=== PATIENT | female | born 1945 | race Caucasian/White ===

== ENCOUNTER 2017-08-30 11:00 | Outpatient (CLI) | payer MEDICARE, OTHER | END 2017-08-30 11:01 | disposition home or self-care (01) | LOC: BICMAMMO 11:00 | PROVIDERS: ATTEND Nurse Practitioner Family | DX: Z12.31 Encounter for screening mammogram for malignant neoplasm of breast (principal); Z80.3 Family history of malignant neoplasm of breast | CPT/HCPCS: 77063; 77067 ==

== ENCOUNTER 2018-07-30 08:33 | Outpatient (CLI) | payer MEDICARE, OTHER ==
--- NOTE | 2018-07-30 11:10 | BD ---
DEXA BONE DENSITY EXAM: HISTORY: A 73-year-old postmenopausal female for screening. FINDINGS: LUMBAR SPINE BMD (g/cm2) T-SCORE L1 0.702 -2.6 L2 0.678 -3.2 L3 0.699 -3.5 L4 0.796 -2.4 TOTAL L1-L4 0.722 -3.0 LEFT FEMORAL NECK 0.620 -2.1 TOTAL PROXIMAL LEFT FEMUR 0.823 -1.0 IMPRESSION: Osteoporosis. This patient has between a 10 year WHO fracture risk for a major osteoporotic fracture of 11% and for a hip fracture of 2.5%. POS: [facility]
== END 2018-07-30 08:34 | disposition home or self-care (01) ==
LOC: BICMAMMO 08:33
PROVIDERS: ATTEND Nurse Practitioner Family
DX: Z13.820 Encounter for screening for osteoporosis (principal); M81.0 Age-related osteoporosis without current pathological fracture
CPT/HCPCS: 77080

== ENCOUNTER 2018-09-11 10:20 | Outpatient (CLI) | payer MEDICARE, OTHER ==
--- NOTE | 2018-09-11 11:10 | MMO ---
Bilateral MAMMO Bilat Screen [facility]. CLINICAL HISTORY: Patient is 73 years old and is seen for screening. The patient has the following family history of breast cancer: sister. The patient has no personal history of cancer. VIEWS: The views performed were: bilateral craniocaudal with tomosynthesis and bilateral mediolateral oblique with tomosynthesis. FILMS COMPARED: The present examination has been compared to prior imaging studies performed at [facility] on 04/04/2016, 04/17/2016 and 08/30/2017. MAMMOGRAM FINDINGS: There are scattered fibroglandular densities. There are stable benign appearing calcifications seen in both breasts. There are also vascular calcifications. There are no suspicious masses, suspicious calcifications, or new areas of architectural distortion. IMPRESSION: THERE IS NO MAMMOGRAPHIC EVIDENCE OF MALIGNANCY. A ROUTINE FOLLOW-UP MAMMOGRAM IN 1 YEAR IS RECOMMENDED. THE RESULTS OF THIS EXAM WERE SENT TO THE PATIENT. ACR BI-RADS Category 2 - Benign finding MAMMOGRAPHY NOTE: 1. A negative mammogram report should not delay a biopsy if a dominant of clinically suspicious mass is present. 2. Approximately 10% to 15% of breast cancers are not detected by mammography. 3. Adenosis and dense breasts may obscure an underlying neoplasm. Reported by: MAIA HARTMAN MD Electonically Signed: [id number]
== END 2018-09-11 10:21 | disposition home or self-care (01) ==
LOC: BICMAMMO 10:20
PROVIDERS: ATTEND Nurse Practitioner Family
DX: Z12.31 Encounter for screening mammogram for malignant neoplasm of breast (principal); Z80.3 Family history of malignant neoplasm of breast
CPT/HCPCS: 77063; 77067

== ENCOUNTER 2019-09-16 14:30 | Outpatient (CLI) | payer MEDICARE, OTHER ==
--- NOTE | 2019-09-16 14:41 | RAD ---
EXAM: 3 views of the lumbosacral spine HISTORY: Low back pain COMPARISON: None FINDINGS: 3 views of the lumbosacral spine shows normal height of the vertebral bodies and interverte bral discs without fracture or subluxation. There is slight scoliotic curvature of the spine with intervertebral disc space narrowing. The sacroiliac joints are unremarkable. Cholecystectomy clips are seen. IMPRESSION: Scoliosis and degenerative changes of the lumbar spine without acute abnormality
== END 2019-09-16 14:31 | disposition home or self-care (01) ==
LOC: RAD-FRANK 14:30
PROVIDERS: ATTEND Nurse Practitioner Family
DX: M54.41 Lumbago with sciatica, right side (principal); M41.9 Scoliosis, unspecified; M47.816 Spondylosis without myelopathy or radiculopathy, lumbar region
CPT/HCPCS: 72100

== ENCOUNTER 2019-10-08 13:55 | Outpatient (CLI) | payer MEDICARE, OTHER ==
--- NOTE | 2019-10-09 09:30 | CT ---
CT OF THE LUMBAR SPINE WITHOUT CONTRAST: INDICATION: History of low back pain. FINDINGS: There is levoscoliosis of the lumbar spine centered at L4-5. COMPARISON: None. FINDINGS: There is bilateral nephrolithiasis. No hydronephrosis is demonstrated. No free fluid is evident. Th ere are moderate calcifications involving the abdominopelvic vasculature. There is moderate degenerative change of the SI joints. No definite osseous central canal or neural foraminal narrowing seen at L5-S1. At L4-5, there is a broad-based bulge and facet hypertrophy inducing at least moderate right neural f oraminal narrowing. At L3-4, there is a broad-based bulge with facet hypertrophy, but no appreciable osseous central yordy l or neural foraminal narrowing. At L2-3, there is no appreciable osseous central canal or neural foraminal narrowing. At L1-L2, there is no appreciable osseous central canal or neural foraminal narrowing. At T12-L1, there is no appreciable osseous central canal or neural foraminal narrowing. IMPRESSION: 1. Mild spondylosis of the lumbar spine most pronounced on the right at L4-5 where there is moderate right neural foraminal narrowing due to broad-based bulge and facet hypertrophy. 2. Bilateral nephrolithiasis. 3. 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 POS: [facility]
== END 2019-10-08 13:56 | disposition home or self-care (01) ==
LOC: BICCT 13:55
PROVIDERS: ATTEND Family Medicine
DX: G89.4 Chronic pain syndrome (principal); M51.16 Intervertebral disc disorders with radiculopathy, lumbar region; M70.61 Trochanteric bursitis, right hip; M47.26 Other spondylosis with radiculopathy, lumbar region; M48.061 Spinal stenosis, lumbar region without neurogenic claudication; N20.0 Calculus of kidney; M47.818 Spondylosis without myelopathy or radiculopathy, sacral and sacrococcygeal region
CPT/HCPCS: 72131

== ENCOUNTER 2021-09-14 09:48 | Outpatient (CLI) | payer MEDICARE, OTHER | END 2021-09-14 09:49 | disposition home or self-care (01) | LOC: BICMAMMO 09:48 | PROVIDERS: ATTEND Nurse Practitioner Family | DX: Z12.31 Encounter for screening mammogram for malignant neoplasm of breast (principal); Z80.3 Family history of malignant neoplasm of breast | CPT/HCPCS: 77063; 77067 ==

== ENCOUNTER 2023-11-30 10:13 | Outpatient (CLI) | payer MEDICARE | END 2023-11-30 10:14 | disposition home or self-care (01) | LOC: BICMAMMO 10:13 | PROVIDERS: ATTEND Nurse Practitioner Family | DX: Z12.31 Encounter for screening mammogram for malignant neoplasm of breast (principal); Z80.3 Family history of malignant neoplasm of breast | CPT/HCPCS: 77063; 77067 ==